=== PATIENT | male | born 1960 | race Caucasian/White ===

== ENCOUNTER 2017-04-02 14:37 | Inpatient (IN) | payer OTHER, BC ==
[~2017-04-02] VITALS: Ht 165.1 cm; Wt 79.4 kg
--- NOTE | 2017-04-02 14:37 | NUR ---
Patient BIBA BLS, transferred to bed 4. RN evaluating patient at bedside.
[2017-04-02 14:44] VITALS: BP 134/68
--- NOTE | 2017-04-02 14:53 | NUR ---
PATIENT BIBA FROM HOME DIVERTED FROM [facility] FOR FEVER AND 8/10 RIGHT LEG PAIN. 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 DENIES N/V/D; SKIN IS PINK/WARM/DRY; AAOX4 ; LUNGS CLEAR BL; HR EVEN AND REGULAR; PT DENIES ANY CP, SOB, OR COUGH AT THIS TIME; PATIENT STATES PAIN OF 10/10 AT THIS TIME;PATIENT POSITIONED FOR COMFORT; HOB ELEVATED; BEDRAILS UP X2; BED DOWN. ER MD MADE AWARE OF PT STATUS.
[2017-04-02] MEDS ORDERED: BUMEX1 MG PO (14:58)
[2017-04-02] MEDS ORDERED: ASPIRIN81 M1 PO (14:58)
[2017-04-02] MEDS ORDERED: ZYLOPRIM100 MG PO (14:58)
[2017-04-02] MEDS ORDERED: ASTAGRAF XL1 MG PO (14:58)
[2017-04-02] MEDS ORDERED: ZESTRIL5 MG PO (15:03)
[2017-04-02] MEDS ORDERED: [UNRECOGNIZED DRUG - OTHER] PO (15:03)
[2017-04-02] MEDS ORDERED: APRESOLINE25 MG PO (15:03)
[2017-04-02] MEDS ORDERED: TOPROL XL50 MG PO (15:03)
--- NOTE | 2017-04-02 15:10 | NUR ---
Dr. Soriano evaluating patient at bedside.
[2017-04-02] MEDS ORDERED: MORPHINE SULFATE 4 MG/ML SYR IVP ONE (15:20)
[2017-04-02] MEDS ORDERED: VANCOMYCIN 1,000 MG in DEXTROSE 5% 250 ML IV ONE (15:20)
[2017-04-02] MEDS ORDERED: VITAMIN D1000 IU PO (15:43)
[2017-04-02] MEDS ORDERED: PREDNISONE20 MG PO (15:43)
[2017-04-02] MEDS ORDERED: PRAVASTATIN SOD10 MG PO (15:43)
[2017-04-02] MEDS ORDERED: GOOD SENSE OMEP20 MG PO (15:43)
[2017-04-02] MEDS ORDERED: MULTI-VITAMINS1 TAB PO (15:43)
--- NOTE | 2017-04-02 15:46 | NUR ---
XRAY AT BEDSIDE.
[2017-04-02] MEDS ORDERED: HUMALOG100 UNIT/1 SQ (15:47)
[2017-04-02] MEDS ORDERED: LEVEMIR100 U/ML SUBQ (15:47)
[2017-04-02] MEDS ORDERED: VANCOMYCIN 1,000 MG VIAL ONE (16:08)
--- NOTE | 2017-04-02 16:24 | NUR ---
PT RESTING ON BED;NO ACUTE DISTRESS NOTED;WILL CONTINUE TO MONITOR PT.
--- NOTE | 2017-04-02 16:25 | NUR ---
US tech at bedside for exam.
--- NOTE | 2017-04-02 16:33 | NUR ---
US AT BEDSIDE.
[2017-04-02] MEDS ORDERED: NACL 0.9% 1,000 ML IV SCH (17:06)
[2017-04-02] MEDS ORDERED: DEXTROSE 50% 50 ML SYR IVP PRN (17:10)
[2017-04-02] MEDS ORDERED: ACETAMINOPHEN 325 MG TAB PO PRN (17:10)
[2017-04-02] MEDS ORDERED: DOCUSATE SODIUM 100 MG GELCAP PO PRN ×2 (17:10→18:00)
[2017-04-02] MEDS ORDERED: ONDANSETRON 4 MG/2 ML VIAL IM/IVP PRN (17:10)
[2017-04-02] MEDS ORDERED: hydrALAZINE 25 MG TAB PO SCH (17:10)
[2017-04-02] MEDS ORDERED: PIPERACILLIN/TAZOBACTAM 2.25 GM in DEXTROSE 5% 50 ML IV SCH (18:00)
[2017-04-02] MEDS ORDERED: ALBUTEROL SULFATE/IPRATROPIU 3 ML SOL IH PRN (18:00)
[2017-04-02 18:10] VITALS: BP 128/70
--- NOTE | 2017-04-02 18:10 | NUR ---
RECEIVED PT FROM ER, AWAKE, ALERT ORIENTEDX4. NO SOB NOTED. PT HAS FISTULA AT RIGHT ARM, JACQUIE CATH ON RIGHT UPPER CHEST NOTED, DRESSING DRY AND INTACT. PT HAS RIGHT LEG SWELLING WITH REDNESS DUE TO RIGHT LEG CELLULITIS. SKIN INTACT. PT VERBALIZED HE IS AMBULATORY BUT CAN'T AMBULATE RIGHT NOW BECAUSE OF PAIN OF RIGHT LEG. SAFETY PRECAUTION IN PLACE. CALL LIGHT WITHIN REACH.
--- NOTE | 2017-04-02 18:16 | NUR ---
Patient will be admitted to care of DR MCCLURE. Admited to TELE. Will go to room 110 B. Belongings list completed. Report to NINA CROFT.
--- NOTE | 2017-04-02 18:30 | NUR ---
CALLED RESIDENT DATA GOVERNANCE CONSULTANT NUMBER. LEFT A MESSAGE TO GET AN MRSA TEST ORDER PER HOSPITAL PROTOCOL. AWAITING CALL BACK.
[2017-04-02] MEDS: CLINDAMYCIN 900 MG in DEXTROSE 5% 100 ML IV SCH ×2 (18:49→23:40)
[2017-04-02] MEDS: HYDROcodone/APAP 7.5/325 MG 1 TAB PO PRN (18:49)
--- NOTE | 2017-04-02 19:30 | NUR ---
RECEIVED REPORT FROM DAY RN AT BEDSIDE, PATIENT IS AAOX4 RESTING IN BED, NO SOB OR SIGN OF DISTRESS ON ROOM AIR. SKIN INTACT WITH REDNESS AND SWELLING TO RIGHT LOWER EXTREMITY, WARM TO THE TOUCH. PATIENT STATES PAIN WHEN LEG IS TOUCHED. PAIN MEDS ADMINISTERED. IV TO LEFT WRIST PATENT AND INTACT, NOTED FISTULA TO RIGHT ARM, PATIENT STATES NOT IN USE YET, JACQUIE CATH TO RIGHT UPPER CHEST NOTED WITH DRESSING DRY AND INTACT. DISCUSSED PLAN OF CARE WITH PATIENT, PATIENT VERBALIZED UNDERSTANDING, SAFETY MEASURES CHECKED, CALL LIGHT WITHIN REACH. WILL CONTINUE TO MONITOR.
--- NOTE | 2017-04-02 19:31 | NUR ---
PT KEPT CLEAN DRY AND COMFORTABLE. NEEDS ATTENDED. ENDORSED TO NEXT SHIFT REASSESSMENT OF PRN PAIN MEDICATION. NO SOB NOTED AT THIS TIME.
[2017-04-02 19:40] VITALS: BP 128/73
--- NOTE | 2017-04-02 20:18 | NUR ---
PAGED THE SUSTAINMENT LOGISTICS ANALYST DR MARCIAL, INQUIRED ABOUT PATIENT'S NPO STATUS PATIENT EXPRESSED CONCERN ABOUT BEING DIABETIC AND NOT BEING ABLE TO EAT, STATED HE WOULD PUT IN ORDER FOR TONIGHT AND NPO AFTER MIDNIGHT. EXPLAINED TO PATIENT, VERBALIZED UNDERSTANDING, STATED OKAY TO GIVE MEDICATION WITH NPO.
[2017-04-02] MEDS: TACROLIMUS 0.5 MG CAP PO SCH (20:39)
[2017-04-02] MEDS: BUMETANIDE 1 MG TAB PO SCH (20:39)
[2017-04-02] MEDS: SIMVASTATIN 10 MG TAB PO SCH (20:40)
[2017-04-02] MEDS: MORPHINE SULFATE 2 MG/ML SYR IVP PRN (20:40)
[2017-04-02] MEDS: DOCUSATE SODIUM 100 MG GELCAP PO SCH (20:40)
[2017-04-02] MEDS: BLOOD GLUCOSE MONITORING 1 DEV DEV FS SCH (20:49)
--- NOTE | 2017-04-02 20:52 | NUR ---
PM MEDS ADMINISTERED, PATIENT TOLERATED WELL, CALL LIGHT WITHIN REACH. WILL CONTINUE TO MONITOR
[2017-04-03] VITALS: BP 113/54
--- NOTE | 2017-04-03 00:02 | NUR ---
VITAL SIGNS STABLE, NO SOB OR SIGN OF DISTRESS, CALL LIGHT WITHIN REACH. WILL CONTINUE TO MONITOR.
[2017-04-03] MEDS: MORPHINE SULFATE 2 MG/ML SYR IVP PRN ×6 (01:26→20:15)
--- NOTE | 2017-04-03 02:09 | NUR ---
PATIENT SLEEPING, NO SOB OR SIGN OF DISTRESS AT THIS TIME, CALL LIGHT WITHIN REACH. WILL CONTINUE TO MONITOR
[2017-04-03 04:00] VITALS: BP 156/69
--- NOTE | 2017-04-03 04:28 | NUR ---
VITAL SIGNS STABLE, NO SOB OR SIGN OF DISTRESS, CALL LIGHT WITHIN REACH. WILL CONTINUE TO MONITOR
[2017-04-03] MEDS: CLINDAMYCIN 900 MG in DEXTROSE 5% 100 ML IV SCH ×3 (05:10→17:09)
--- NOTE | 2017-04-03 06:15 | NUR ---
CALLED DIALYSIS NURSE TO INFORM ORDER FOR DIALYSIS TODAY.
[2017-04-03] MEDS: BLOOD GLUCOSE MONITORING 1 DEV DEV FS SCH ×4 (06:32→20:20)
--- NOTE | 2017-04-03 06:45 | NUR ---
PATIENT HAS BEEN SCREENED AND CATEGORIZED HIGH NUTRITION RISK. PATIENT WILL BE SEEN WITHIN 1-2 DAYS OF ADMISSION. 04/03/17-04/04/17 MEG SAUCEDO MS, RDN
[2017-04-03] MEDS ORDERED: INSULIN LISPRO 6 UNIT SQ SCH (07:30)
--- NOTE | 2017-04-03 07:30 | NUR ---
ENDORSED PATIENT TO DAY RN AT BEDSIDE, PATIENT IN STABLE CONDITION
--- NOTE | 2017-04-03 07:31 | NUR ---
PT AWAKE AND ALERT AND ORIENTED X4, NO SIGNS OF ACUTE DISTRESS, BREATHING EVEN AND UNLABORED BILATERALLY, BOWEL SOUNDS ACTIVE IN ALL 4 QUADRANTS, BEDREST, SKIN INTACT WITH RIGHT AV FISTULA IN UPPER ARM, JACQUIE CATH RIGHT UPPER CHEST AND IV IN LEFT WRIST PATENT WITH NO SIGNS OF REDNESS, BED IN LOW POSITION WITH BILATERAL HALF SIDE RAILS UP, CALL LIGHT WITHIN REACH.
[2017-04-03 08:00] VITALS: BP 137/72
--- NOTE | 2017-04-03 08:00 | NUR ---
CALLED DIALYSIS CENTER, SAID THAT THEY WILL BEGIN DIALYSIS AT 0900 TODAY. WILL HOLD ALL 0900 MEDICATIONS, PT BLOOD PRESSURE STABLE.
[2017-04-03] MEDS: BUMETANIDE 1 MG TAB PO SCH ×2 (09:00→20:14)
[2017-04-03] MEDS: DOCUSATE SODIUM 100 MG GELCAP PO SCH ×2 (09:00→20:14)
[2017-04-03] MEDS: VIT-B COMP/VIT-C/FOLIC ACID 1 TAB PO SCH (09:00)
[2017-04-03] MEDS: CHOLECALCIFEROL 1,000 IU TAB PO SCH (09:00)
[2017-04-03] MEDS: ASPIRIN 81 MG TAB.CHEW PO SCH (09:00)
[2017-04-03] MEDS ORDERED: hydrALAZINE 25 MG TAB PO SCH (09:00)
[2017-04-03] MEDS ORDERED: PRAVASTATIN SODIUM 10 MG PO SCH (09:00)
[2017-04-03] MEDS: INSULIN DETEMIR 100 UNITS/ML 10 ML VIAL SUBQ SCH (09:00)
[2017-04-03] MEDS: METOPROLOL SUCCINATE 50 MG TABER PO SCH (09:00)
[2017-04-03] MEDS ORDERED: MULTIVITAMIN 1 TAB PO SCH (09:00)
[2017-04-03] MEDS: predniSONE 5 MG TAB PO SCH (09:00)
[2017-04-03] MEDS: ALLOPURINOL 100 MG TAB PO SCH (09:00)
[2017-04-03] MEDS: TACROLIMUS 0.5 MG CAP PO SCH ×2 (09:00→20:14)
[2017-04-03] MEDS: LISINOPRIL 5 MG TAB PO SCH (09:00)
[2017-04-03] MEDS ORDERED: LEVOFLOXACIN 250 MG/D5 PREMIX 50 ML IV SCH (09:00)
--- NOTE | 2017-04-03 10:03 | NUR ---
04/03/17 INITIAL ASSESSMENT COMPLETED PLEASE REFER TO NUTRITION ASSESSMENT UNDER CARE ACTIVITY FOR ESTIMATED NUTRITIONAL NEEDS. RD RECOMMENDATIONS: 1. CONTINUE NPO MEDICALLY APPROPRIATE. 2. CONSIDER INITIATING NUTRITION WHEN APPROPRIATE; CONSULT RDN PRN. 3. RD WILL F/U 3-5 DAYS; MODERATE RISK. MEG SAUCEDO MS, RDN
[2017-04-03 12:00] VITALS: BP 140/67
--- NOTE | 2017-04-03 13:00 | NUR ---
DIALYSIS NURSE ARRIVED, REPORT GIVEN. PT WILL BEGIN HEMODIALYSIS. BLOOD SUGAR WAS 76 AT 1200.
[2017-04-03 16:00] VITALS: BP 144/71
--- NOTE | 2017-04-03 17:13 | NUR ---
DIALYSIS FINISHED, OUTPUT 3,000ML. PT AWAKE AND ALERT, NO SIGNS OF ACUTE DISTRESS.
--- NOTE | 2017-04-03 18:38 | NUR ---
PT C/O FEELING FEVERISH. TEMPERATURE 99.7, PROVIDED ICE PACK FOR COOLING MEASURES. WILL RE-ASSESS.
--- NOTE | 2017-04-03 19:30 | NUR ---
PT AWAKE AND ALERT, NO SIGNS OF ACUTE DISTRESS. BED IN LOW POSITION WITH BILATERAL HALF SIDE RAILS UP, CALL LIGHT WITHIN REACH. ENDORSED TO HEAVY TRUCK TECHNICIAN NURSE FOR CONTINUITY OF CARE.
--- NOTE | 2017-04-03 19:30 | NUR ---
RECEIVED REPORT FROM DAY RN AT BEDSIDE, PATIENT IS AWAKE AAOX4 RESTING IN BED ON ROOM AIR, NO SOB OR SIGN OF DISTRESS AT THIS TIME, IV TO LEFT WRIST PATENT AND INTACT, PATIENT DENIES PAIN AT THIS TIME. RIGHT LOWER EXTREMITY CELLULITIS WRAPPED IN BANDAGE, DRY AND INTACT. DISCUSSED PLAN OF CARE WITH PATIENT, PATIENT VERBALIZED UNDERSTANDING, SAFETY MEASURES CHECKED, CALL LIGHT WITHIN REACH. WILL CONTINUE TO MONITOR.
[2017-04-03 19:43] VITALS: BP 140/63
[2017-04-03] MEDS: SIMVASTATIN 10 MG TAB PO SCH (20:14)
--- NOTE | 2017-04-03 20:19 | NUR ---
PM MEDS ADMINISTERED, PATIENT TOLERATED WELL, RESTING COMFORTABLE IN BED, CALL LIGHT WITHIN REACH. WILL CONTINUE TO MONITOR
--- NOTE | 2017-04-03 22:40 | NUR ---
PATIENT SLEEPING, NO SOB OR SIGN OF DISTRESS AT THIS TIME, CALL LIGHT WITHIN REACH. WILL CONTINUE TO MONITOR.
[2017-04-04] VITALS: BP 144/65
[2017-04-04] MEDS: MORPHINE SULFATE 2 MG/ML SYR IVP PRN ×3 (00:05→08:36)
[2017-04-04] MEDS: CLINDAMYCIN 900 MG in DEXTROSE 5% 100 ML IV SCH ×5 (00:09→23:26)
--- NOTE | 2017-04-04 00:10 | NUR ---
PT REQUESTED TO REMOVE THE PILLOW FROM HIS RT LEG, EXPLAINED TO HIM THAT THE MD WANTS HIS RT LEG ELEVATED WHILE HE IS. IN BED
--- NOTE | 2017-04-04 02:30 | NUR ---
PATIENT SLEEPING, NO SOB OR SIGN OF DISTRESS, CALL LIGHT WITHIN REACH. WILL CONTINUE TO MONITOR.
[2017-04-04 04:00] VITALS: BP 134/53
--- NOTE | 2017-04-04 04:20 | NUR ---
VITAL SIGNS STABLE, NO SOB OR SIGN OF DISTRESS, CALL LIGHT WITHIN REACH WILL CONTINUE TO MONITOR
[2017-04-04] MEDS: BLOOD GLUCOSE MONITORING 1 DEV DEV FS SCH ×4 (06:41→20:41)
--- NOTE | 2017-04-04 07:32 | NUR ---
ENDORSED PATIENT TO DAY RN AT BEDSIDE, PATIENT IN STABLE CONDITION.
--- NOTE | 2017-04-04 07:36 | NUR ---
RECEIVED REPORT FROM NINA HICKEY. PT IS SITTING IN BED, A/OX4, BEDREST, PT HAS IV ON THE LT WRIST, PATENT, INTACT, FLUSHING WELL, PT HAS A JACQUIE CATH, RIGHT UPPER CHEST, AV FISTULA RIGHT UPPER ARM (NOT IN USE) SKIN IS INTACT, THERE IS RED SWELLING ON THE RIGHT LEG NOTED, THERE ARE NO S/S OF RESPIRATORY DISTRESS OR DISCOMFORT NOTED, DISCUSSED PLAN OF CARE WITH PT, PT VERBALIZED UNDERSTANDING, SAFETY/FALL PRECAUTIONS ARE IN PLACE, CALL LIGHT IS WITHIN REACH, WILL CONTINUE TO MONITOR.
[2017-04-04 08:00] VITALS: BP 137/60
[2017-04-04] MEDS: METOPROLOL SUCCINATE 50 MG TABER PO SCH (08:36)
[2017-04-04] MEDS: BUMETANIDE 1 MG TAB PO SCH ×2 (08:37→20:36)
[2017-04-04] MEDS: TACROLIMUS 0.5 MG CAP PO SCH ×2 (08:37→20:37)
[2017-04-04] MEDS: predniSONE 5 MG TAB PO SCH (08:37)
[2017-04-04] MEDS: CHOLECALCIFEROL 1,000 IU TAB PO SCH (08:37)
[2017-04-04] MEDS: VIT-B COMP/VIT-C/FOLIC ACID 1 TAB PO SCH (08:37)
--- NOTE | 2017-04-04 08:37 | NUR ---
DUE MEDICATIONS GIVEN, PT ASKED ME TO HOLD OFF ON THE ASPIRIN BECAUSE HE WAS GOING TO HAVE A PROCEDURE DONE THIS WEEK. ASPIRIN WAS NOT GIVEN.
[2017-04-04] MEDS: LISINOPRIL 5 MG TAB PO SCH (08:38)
[2017-04-04] MEDS: DOCUSATE SODIUM 100 MG GELCAP PO SCH ×2 (08:38→20:36)
[2017-04-04] MEDS: ALLOPURINOL 100 MG TAB PO SCH (08:38)
[2017-04-04] MEDS: ASPIRIN 81 MG TAB.CHEW PO SCH (08:45)
[2017-04-04] MEDS ORDERED: HYDROmorphone 1 MG/ML AMP IVP PRN (08:55)
[2017-04-04] MEDS: INSULIN DETEMIR 100 UNITS/ML 10 ML VIAL SUBQ SCH (09:00)
--- NOTE | 2017-04-04 10:30 | NUR ---
PT RESTING IN BED WATCHING TV, CALL LIGHT WITHIN REACH.
[2017-04-04 12:00] VITALS: BP 135/62
--- NOTE | 2017-04-04 12:30 | NUR ---
PT SITTING IN BED, WATCHING TV, CALL LIGHT WITHIN REACH.
[2017-04-04] MEDS: HYDROmorphone 1 MG/ML AMP IVP PRN ×3 (12:46→20:33)
--- NOTE | 2017-04-04 14:30 | NUR ---
PT RESTING IN BED WATCHING TV, FAMILY IS AT BEDSIDE.
[2017-04-04 16:00] VITALS: BP 125/60
--- NOTE | 2017-04-04 16:30 | NUR ---
PT SITTING IN BED WATCHING TV, FAMILY IS AT BEDSIDE, CALL LIGHT WITHIN REACH.
[2017-04-04] MEDS: INSULIN LISPRO SLIDING SCALE 100 UNITS/ML VIAL SUBQ PRN ×2 (16:58→20:40)
--- NOTE | 2017-04-04 18:00 | NUR ---
PT CALLED SAID IV WAS LEAKING, IV WAS FLUSHED PATENT, AND INTACT, NEW TEGADERM PLACED AND RE ENFORCED WITH TAPE.
--- NOTE | 2017-04-04 19:18 | NUR ---
ENDORSED PT TO NINA TYLER. FOR CONTINUITY OF CARE, PT STABLE AT THIS TIME.
--- NOTE | 2017-04-04 19:20 | NUR ---
RECEIVED PT AWAKE ON BED TALKING TO FAMILY MEMBER AT BEDSIDE, VITAL SIGNS STABLE, 6/10 PAIN LEVEL, WILL MEDICATE PRN WHEN DUE, NO SOB NOTED, RT LEG SWOLLEN, COVERED WITH ROLLED GAUZE, LEG ELEVATED WITH PILLOW, RT CHEST JACQUIE CATH IN PLACE, DRESSING DRY AND INTACT, PLAN OF CARE DISCUSSED, SAFETY MEASURES IN PLACE, CALL LIGHT WITHIN REACH.
[2017-04-04 20:00] VITALS: BP 113/59
[2017-04-04] MEDS: MAGNESIUM OXIDE 400 MG TAB PO SCH (20:36)
[2017-04-04] MEDS: SIMVASTATIN 10 MG TAB PO SCH (20:36)
--- NOTE | 2017-04-04 20:40 | NUR ---
BLOOD SUGAR CHECKED WITH 183 RESULT, COVERAGE GIVEN, SNACK PROVIDED, DUE MEDICATIONS ADMINISTERED, MEDICATED PRN FOR PAIN, ASSIST IN REPOSITIONING, ALL NEEDS ATTENDED.
--- NOTE | 2017-04-04 22:10 | NUR ---
ROUNDED ON PT, AWAKE WATCHING TV, NO SIGNS OF DISTRESS, MONITORED CLOSELY.
[2017-04-05] VITALS: BP 105/50
[2017-04-05] MEDS: HYDROcodone/APAP 7.5/325 MG 1 TAB PO PRN ×2 (00:34→06:25)
--- NOTE | 2017-04-05 00:37 | NUR ---
PT COMPLAINING OF PAIN, PT PREFER DILAUDID BUT BLOOD PRESSURE IS LOW, RISK EXPLAINED, PT VERBALIZED UNDERSTANDING, MEDICATED INSTEAD WITH NORCO PO, MONITORED CLOSELY.
[2017-04-05] MEDS: HYDROmorphone 1 MG/ML AMP IVP PRN ×2 (02:21→08:17)
--- NOTE | 2017-04-05 02:35 | NUR ---
PT COMPLAINING OF SEVERE PAIN, BP-130/55, MEDICATED PRN WITH DILAUDID IVP, VOIDED FREELY PER URINAL WITH MOIRA COLORED URINE 100ML, MONITORED CLOSELY.
[2017-04-05 04:00] VITALS: BP 105/52
--- NOTE | 2017-04-05 04:00 | NUR ---
SLEEPING, EASILY AROUSABLE, VITAL SIGNS STABLE, BP-105/52, DENIES ANY PAIN, MONITORED CLOSELY.
[2017-04-05] MEDS: CLINDAMYCIN 900 MG in DEXTROSE 5% 100 ML IV SCH ×3 (05:09→18:12)
--- NOTE | 2017-04-05 06:31 | NUR ---
BLOOD SUGAR CHECKED WITH 145 RESULT, NO COVERAGE NEEDED, COMPLAINING OF PAIN, BP-102/49, MEDICATED PRN WITH NORCO, UNABLE TO COLLECT STOOL FOR OB, NO BM THE WHOLE SHIFT, WILL ENDORSE.
--- NOTE | 2017-04-05 07:15 | NUR ---
PT AWAKE, DR MCCLURE AT BEDSIDE TALKING TO PT, REPORT GIVEN TO RN ANGELICA FOR CONTINUITY OF CARE.
--- NOTE | 2017-04-05 07:35 | NUR ---
REPORT RECEIVED FROM PEDIATRIC UROLOGIST, PT RESTING QUIETLY IN NAD, RESP EVEN UNLABORED ON ROOM AIR, MOVES ALL EXT, RIGHT LOWER EXT WITH +3 EDEMA, GOOD CMS DISTALLY, SKIN INTACT, PIV TO LEFT HAND, SITE CLEAR, MD TEAM AT BEDSIDE, PLAN OF CARE DISCUSSED, ALL PT QUESTIONS ASKED AND ANSWERED, PT DENIES ANY IMMEDIATE NEEDS AT HTIS TIME, CALL GARCIA WITHIN REACH, BED LOCKED IN LOW POSITION, SIDE RAILS UP X2, WILL CONTINUE TO MONITOR.
[2017-04-05] MEDS: BLOOD GLUCOSE MONITORING 1 DEV DEV FS SCH ×4 (07:40→21:48)
[2017-04-05 08:00] VITALS: BP 111/53
[2017-04-05] MEDS: TACROLIMUS 0.5 MG CAP PO SCH ×2 (08:12→08:16)
[2017-04-05] MEDS: predniSONE 5 MG TAB PO SCH (08:15)
[2017-04-05] MEDS: MAGNESIUM OXIDE 400 MG TAB PO SCH ×2 (08:16→21:42)
[2017-04-05] MEDS: BUMETANIDE 1 MG TAB PO SCH ×2 (08:16→21:42)
[2017-04-05] MEDS: CHOLECALCIFEROL 1,000 IU TAB PO SCH (08:16)
[2017-04-05] MEDS: VIT-B COMP/VIT-C/FOLIC ACID 1 TAB PO SCH (08:16)
[2017-04-05] MEDS: ALLOPURINOL 100 MG TAB PO SCH (08:16)
[2017-04-05] MEDS: INSULIN DETEMIR 100 UNITS/ML 10 ML VIAL SUBQ SCH (08:18)
[2017-04-05] MEDS: ASPIRIN 81 MG TAB.CHEW PO SCH (09:00)
[2017-04-05] MEDS: LISINOPRIL 5 MG TAB PO SCH (09:00)
[2017-04-05] MEDS: METOPROLOL SUCCINATE 50 MG TABER PO SCH (09:00)
[2017-04-05] MEDS: DOCUSATE SODIUM 100 MG GELCAP PO SCH ×2 (09:00→21:42)
--- NOTE | 2017-04-05 10:00 | NUR ---
PT RESTING COMFORTABLY WITH FAMILY AT BEDSIDE, RESP EVEN UNLABORED ON ROOM AIR, APPEARS COMFORTABLE IN NAD, CHANGED TO MED/SURGE, TELE MONITOR REMOVED, PT DENIES ANY IMMEDIATE NEEDS, CALL GARCIA WITHIN REACH, BED LOCKED IN LOW POSITION, WILL CONTINUE TO MONITOR.
--- NOTE | 2017-04-05 11:03 | NUR ---
[facility] CALLED, HAAS JESSE NOTIFIED OF HEMODIALYSIS ORDER, PT TO BE DIALYZED TOMORROW PER HAAS, PER PT'S REGULAR SCHEDULE WED/WED/WED.
--- NOTE | 2017-04-05 11:21 | NUR ---
FAXED INITIAL REVIEW TO [facility] [phone] PHONE MELIDA [phone]
--- NOTE | 2017-04-05 11:54 | NUR ---
FINGER STICK GLUCOSE 117, PT SITTING UP TALKING WITH FAMILY SMILING IN NAD, PT C/O PAIN 8/10 IN RLE, REFUSES NORCO, PT STATES NORCO WILL NOT WORK, DR NAVARRETE NOTIFIED, CALL GARCIA WITHIN REACH, SIDE RAILS UP X2, BED LOCKED IN LOW POSITION, WILL CONTINUE TO MONITOR.
[2017-04-05] MEDS ORDERED: HYDROmorphone 2 MG TAB PO SCH (12:50)
[2017-04-05 16:00] VITALS: BP 113/44
[2017-04-05] MEDS ORDERED: HYDROmorphone 1 MG/ML AMP IVP PRN (16:25)
[2017-04-05] MEDS: LEVOFLOXACIN 250 MG/D5 PREMIX 50 ML IV SCH (16:26)
[2017-04-05] MEDS: HYDROcodone/APAP 10/325 MG 1 TAB TAB PO PRN ×2 (16:52→21:03)
--- NOTE | 2017-04-05 19:26 | NUR ---
REPORT GIVEN TO ADVERTISING ANALYST, PT IN STABLE CONDITION
--- NOTE | 2017-04-05 19:30 | NUR ---
RECEIVED PT IN STABLE CONDITION FROM AM NURSE. AWAKE,ALERT AND ORIENTED X4. MED SURG PT. WITH NO C/O ANY DISCOMFORT AT THIS TIME. HAS ANTIBIOTICS INFUSING AT THIS TIME ON THE LT HAND#22. CLEAR AND PATENT. RT LOWER LEG WITH CELLULITIS, WITH DRESSING . PLAN OF CARE DISCUSSED AND VERBALIZED UNDERSTANDING. CALL LIGHT AND URINAL AT BEDSIDE. INSTRUCTED TO CALL IF NEED ANY ASSISTANCE. WILL CONTINUE TO MONITOR.
[2017-04-05] MEDS: SIMVASTATIN 10 MG TAB PO SCH (21:42)
[2017-04-05] MEDS: INSULIN LISPRO SLIDING SCALE 100 UNITS/ML VIAL SUBQ PRN (21:49)
--- NOTE | 2017-04-05 22:10 | NUR ---
SLEEPING AT THIS TIME. NO S/S OF ANY DISCOMFORT AND PAIN NOTED.
[2017-04-06] MEDS: CLINDAMYCIN 900 MG in DEXTROSE 5% 100 ML IV SCH ×4 (00:10→17:09)
[2017-04-06 00:30] VITALS: BP 133/64
--- NOTE | 2017-04-06 03:00 | NUR ---
AWAKE, NO C/O OF ANY DISCOMFORT AT THIS TIME. VOIDED @120 ML.
[2017-04-06] MEDS: HYDROcodone/APAP 10/325 MG 1 TAB TAB PO PRN ×4 (05:13→20:48)
--- NOTE | 2017-04-06 05:13 | NUR ---
SLEEPING . NO S/S OF ANY DISCOMFORT NOR PAIN NOTED.
[2017-04-06] MEDS: BLOOD GLUCOSE MONITORING 1 DEV DEV FS SCH ×4 (06:12→21:00)
--- NOTE | 2017-04-06 07:15 | NUR ---
ENDORSED PT IN STABLE CONDITION TO AM NURSE.
--- NOTE | 2017-04-06 07:16 | NUR ---
RECEIVED PT AWAKE AND LYING ON BED, AAOX4, WITH NO S/S OF RESPIRATORY DISTRESS OR DISCOMFORT, ON ROOM AIR, WITH IV ACCESS AT LEFT HAND 22 ON SALINE LOCK PATENT AND INTACT. PT HAS JACQUIE CATH ON RIGHT UPPER CHEST WITH TRANSPARENT DRESSING, NEW AV SHUNT NOTED ON RIGHT UPPER ARM POSITIVE FOR BRUIT AND THRILL. OLD AV SHUNT NOTED ON LEFT UPPER ARM. PT HAS RIGHT LOWER LEG CELLULITIS COVERED WITH BANDAGE DRESSING DRY AND INTACT WITH EDEMA NOTED 3+, PT COMPLAINED OF PAIN, WILL MEDICATE NORCO WHEN IT IS DUE. DISCUSSED PLAN OF CARE, PT VERBALIZED UNDERSTANDING. CALL LIGHT WITHIN REACH, WILL CONTINUE TO MONITOR
--- NOTE | 2017-04-06 07:30 | NUR ---
PT HAS NEW AV SHUNT ON THE RT UPPER ARM WITH GOOD BRUIT. OLD SHUNT ON LT UPPER ARM. DALTON SPLIT HD CATHETER ON RT CHEST DRESSING CLEAN AND DRY.
[2017-04-06 08:00] VITALS: BP 105/45
--- NOTE | 2017-04-06 08:02 | NUR ---
DIALYSIS NURSE ROM ROWLAND
[2017-04-06] MEDS ORDERED: CLEOCIN HCL300 MG PO (08:45)
[2017-04-06] MEDS ORDERED: COLACE100 M1 PO (08:45)
[2017-04-06] MEDS ORDERED: BLOOD GLUCOSE1 EACH FS (08:45)
[2017-04-06] MEDS ORDERED: ACETAMINOPHEN &1 TA1 PO (08:45)
[2017-04-06] MEDS ORDERED: FLORASTOR250 MG PO (08:45)
[2017-04-06] MEDS ORDERED: NEPHRO-VITE1 TA1 PO (08:45)
[2017-04-06] MEDS: CHOLECALCIFEROL 1,000 IU TAB PO SCH (08:48)
[2017-04-06] MEDS: ALLOPURINOL 100 MG TAB PO SCH (08:49)
[2017-04-06] MEDS: predniSONE 5 MG TAB PO SCH (08:49)
[2017-04-06] MEDS: MAGNESIUM OXIDE 400 MG TAB PO SCH ×2 (08:49→20:49)
[2017-04-06] MEDS: VIT-B COMP/VIT-C/FOLIC ACID 1 TAB PO SCH (08:49)
[2017-04-06] MEDS: EPOETIN ALFA 10,000 UNITS/ML VIAL IV SCH (08:51)
[2017-04-06] MEDS: METOPROLOL SUCCINATE 50 MG TABER PO SCH (09:00)
[2017-04-06] MEDS: ASPIRIN 81 MG TAB.CHEW PO SCH (09:00)
[2017-04-06] MEDS: LISINOPRIL 5 MG TAB PO SCH (09:00)
[2017-04-06] MEDS: DOCUSATE SODIUM 100 MG GELCAP PO SCH ×2 (09:00→20:49)
[2017-04-06] MEDS: BUMETANIDE 1 MG TAB PO SCH ×2 (09:00→20:49)
[2017-04-06] MEDS: TACROLIMUS 0.5 MG CAP PO SCH ×2 (09:01→20:50)
[2017-04-06] MEDS: INSULIN DETEMIR 100 UNITS/ML 10 ML VIAL SUBQ SCH (09:01)
--- NOTE | 2017-04-06 09:02 | NUR ---
DUE MEDS OK TO GIVE PER SAMANTHA NURSE ROM CUELLAR. WITHHELD BP MEDS, BUMETANIDE DUE TO DIALYSIS, ASPIRIN DUE TO CONTRAINDICATION (PT HAD LIVER TRANSPLANT) AND COLACE PT STATED HE DOES NOT NEED IT.
[2017-04-06 09:40] VITALS: BP 142/60
--- NOTE | 2017-04-06 10:40 | NUR ---
PT ASLEEP AND RESTING COMFORTABLY, HEMODIALYSIS STILL ONGOING, WITH DIALYSIS NURSE ROM AT BEDSIDE.
--- NOTE | 2017-04-06 11:15 | NUR ---
DIALYSIS ENDED, PT IN STABLE CONDITION WITH 3L OUTPUT
--- NOTE | 2017-04-06 11:36 | NUR ---
P.T. NOTES RECEIVED P.T. EVAL ORDER; Pt UNAVAILABLE DUE TO DIALYSIS IN AM, WILL FOLLOW UP LATER; CALL JOSE, PHONE, TABLE IN REACH; APPRECIATIVE; SPEAKS INDONESIAN, STATES HE LIVES AT HOME W/ & 2 CHILDREN, ALWAYS HAS FAMILY AT HOME, HAS FWW, W/C, BSC, SHOWER CHAIR, SPC. PVE
[2017-04-06] MEDS: INSULIN LISPRO SLIDING SCALE 100 UNITS/ML VIAL SUBQ PRN ×2 (12:04→17:14)
[2017-04-06] MEDS ORDERED: MORPHINE SULFATE 2 MG/ML SYR IVP SCH (12:08)
--- NOTE | 2017-04-06 12:08 | NUR ---
FAXED CONCURRENT REVIEW TO [facility] [phone] PHONE MELIDA [phone]
--- NOTE | 2017-04-06 12:18 | NUR ---
PUT 2 CALLS IN TO MELIDA ABOUT THIS PATIENT. LEFT MESSAGE FOR HER TO CALL EDELMIRA AT [phone] ALSO CALLED PAPITO AT [facility] AND LEFT MESSAGE.
--- NOTE | 2017-04-06 12:18 | NUR ---
PATIENT EXPRESSED CONCERNS REGARDING HIS PAIN AND GOING HOME, STATED THAT HIS DAUGHTER MIGHT NOT BE ABLE TO MANAGE HIM AT HOME DUE TO HIS CONDITION AND THE PAIN, RELAYED TO DR. CERVANTES
--- NOTE | 2017-04-06 13:32 | NUR ---
SS NOTE: MESSAGE LEFT FOR CHELSEA MONTEZ ([phone]) REGARDING SS ORDER FOR SNF FOR IV ABX AND PT WELL TRANSPORT FOR DIALYSIS WHILE PT IS AT SNF
--- NOTE | 2017-04-06 14:11 | NUR ---
PT AWAKE AND WATCHING TV, STATED THAT HIS LEG DOES NOT HURT LONG HE WONT MOVE. NO SIGNS OF ACUTE DISTRESS, WILL CONTINUE TO MONITOR
--- NOTE | 2017-04-06 14:17 | NUR ---
SS NOTE: PER ROHAN FROM [facility] ([phone]), PT CAN GO TO ROOM 105A ANYTIME UNDER DR. ESSENCE MARTINEZ SOON THEY RECEIVE AUTH FROM PT'S INSURANCE. I SPOKE WITH PT AND PT'S DTR BEDSIDE. I INFORMED THEM OF THE ABOVE INFORMATION, PT IS IN AGREEMENT TO GO TO [facility].
--- NOTE | 2017-04-06 14:22 | NUR ---
CM NOTE MESSAGE LEFT FOR [facility] ROSA MONTEZ ([phone]) REGARDING ORDER FOR SNF AND TRANSPORT
--- NOTE | 2017-04-06 14:46 | NUR ---
SS NOTE: [facility] ROM[facility] ([phone]) REGARDING ORDER FOR SNF FOR IV ABX AND PT IN ADDITION TO DIALYSIS TRANSPORT WHILE PT IS AT [facility]
--- NOTE | 2017-04-06 15:28 | NUR ---
SS NOTE: I SPOKE WITH [facility] DIRECTOR, ROMELIA ([phone]) REGARDING ORDER FOR SNF FOR IV ABX AND PT IN ADDITION TO DIALYSIS TRANSPORT WHILE PT IS AT [facility]. SHE STATED THAT SHE WILL CONTACT THEIR CMMELIDA AND HAVE HER CALL ME BACK REGARDING AUTHORIZATIONS. I ALSO PROVIDED HER WITH THE NUMBER FOR THE NURSES' STATION.
--- NOTE | 2017-04-06 15:45 | NUR ---
PT COMPLAINED THAT HIS RIGHT EAR FEELS PLUGGED. NOTIFIED DR NAVARRETE, PER MD TO MONITOR FOR NOW. QTIP GIVEN TO PT TO HELP CLEAN HIS EAR. NO FURTHER COMPLAINS. ALSO STATED THAT HE FEELS LIKE HIS RIGHT LEG HAS PRESSURE AND THAT HIS MUSCLES ARE CRAMPING, ASSESSED LEG FOR DISTAL PULSES AND MOVEMENT. PT ABLE TO WIGGLE TOES AND ROTATE FEET WITHOUT COMPLAIN. NOTIFIED DR NAVARRETE, WILL PRESCRIBE FLEXERIL FOR MUSCLE SPASM
[2017-04-06 16:00] VITALS: BP 134/56
--- NOTE | 2017-04-06 16:02 | NUR ---
NOTIFIED DR NAVARRETE REGARDING PT COMPLAIN OF PAIN DESPITE NORCO. WILL AWAIT FOR ORDERS
--- NOTE | 2017-04-06 18:38 | NUR ---
PT AWAKE WATCHING TV, NO COMPLAINTS AT THIS TIME. WITH RELATIVE AT BEDSIDE. CALL LIGHT WITHIN REACH, WILL CONTINUE TO MONITOR.
--- NOTE | 2017-04-06 19:12 | NUR ---
ENDORSED PT TO LINDA RN IN STABLE CONDITION FOR CONTINUITY OF CARE
--- NOTE | 2017-04-06 19:30 | NUR ---
RECEIVED PT FROM AM NURSE IN STABLE CONDITION . AWAKE,ALERT AND ORIENTED X4. MED SURG PT. ON BEDREST DUE TO FREQUENT PAIN ON THE CELLULITIS ON THE RT LOWER LEG, HAS DRESSING. WITH HL ON THE LT HAND #22. CLEAR AND PATENT. HAS HD CATH ON THE RT CHEST DALTON SPLIT, OLD AV SHUNT ON LT UPPER ARM AND NEW AV SHUNT ON RT UPPER ARM WITH GOOD BRUIT. PLAN OF CARE DISCUSSED AND VERBALIZED UNDERSTANDING. CALL LIGHT PLACED WITHIN EASY REACH. WILL CONTINUE WITH CURRENT PLAN OF CARE. WILL CONTINUE TO MONITOR.
[2017-04-06] MEDS: SIMVASTATIN 10 MG TAB PO SCH (20:50)
--- NOTE | 2017-04-06 21:00 | NUR ---
BLOOD SUGAR WAS CHECKED RESULT 130. NO INSULIN NEEDED. WILL CONTINUE TO MONITOR.
--- NOTE | 2017-04-06 22:00 | NUR ---
ASLEEP. NO S/S OF ANY DISCOMFORT NOTED.
[2017-04-07 00:08] VITALS: BP 136/68
[2017-04-07] MEDS: CLINDAMYCIN 900 MG in DEXTROSE 5% 100 ML IV SCH ×4 (00:11→20:32)
[2017-04-07] MEDS: HYDROcodone/APAP 10/325 MG 1 TAB TAB PO PRN ×5 (00:11→20:28)
[2017-04-07 00:17] VITALS: BP 124/66
--- NOTE | 2017-04-07 01:10 | NUR ---
PT IS ASLEEP. NO S/S OF ANY DISCOMFORT NOR PAIN NOTED. WILL CONTINUE TO MONITOR.
[2017-04-07] MEDS: CYCLOBENZAPRINE 10 MG TAB PO PRN ×2 (01:37→18:25)
[2017-04-07] MEDS: BLOOD GLUCOSE MONITORING 1 DEV DEV FS SCH ×4 (06:00→20:34)
--- NOTE | 2017-04-07 06:00 | NUR ---
BLOOD SUGAR WAS CHECKED THIS AM RESULT 88.
[2017-04-07] MEDS ORDERED: HYDROcodone/APAP 10/325 MG 1 TAB TAB ONE (06:08)
--- NOTE | 2017-04-07 07:30 | NUR ---
ENDORSED PT IN STABLE CONDITION TO AM NURSE.
--- NOTE | 2017-04-07 07:31 | NUR ---
PT AWAKE AND ALERT, NO SIGNS OF ACUTE DISTRESS, BREATHING EVEN AND UNLABORED BILATERALLY ON ROOM AIR, BOWEL SOUNDS ACTIVE IN ALL 4 QUADRANTS, AMBULATORY WITH ASSIST USES URINAL, SKIN INTACT WITH CELLULITIS ON RIGHT LOWER EXTREMITY WITH PITTING EDEMA +2, IV PATENT WITHOUT REDNESS, JACQUIE CATH RIGHT UPPER CHEST, RT UPPER ARM AV SHUNT, COMPLAINT OF PAIN IN RIGHT LEG 06/24, CALL LIGHT WITHIN REACH, BED IN LOW POSITION WITH BILATERAL HALF SIDE RAILS UP.
[2017-04-07 08:00] VITALS: BP 149/67
[2017-04-07] MEDS ORDERED: ZOLPIDEM 5 MG TAB PO PRN (08:20)
--- NOTE | 2017-04-07 08:45 | NUR ---
BLOOD SUGAR 117, PER DR SEARS, AMERICA BURCIAGA, WILL CARRY OUT.
[2017-04-07] MEDS: VIT-B COMP/VIT-C/FOLIC ACID 1 TAB PO SCH (08:57)
[2017-04-07] MEDS: LISINOPRIL 5 MG TAB PO SCH (08:58)
[2017-04-07] MEDS: TACROLIMUS 0.5 MG CAP PO SCH ×2 (08:58→20:28)
[2017-04-07] MEDS: DOCUSATE SODIUM 100 MG GELCAP PO SCH ×2 (08:58→20:28)
[2017-04-07] MEDS: BUMETANIDE 1 MG TAB PO SCH ×2 (08:58→20:27)
[2017-04-07] MEDS: CHOLECALCIFEROL 1,000 IU TAB PO SCH (08:58)
[2017-04-07] MEDS: predniSONE 5 MG TAB PO SCH (08:58)
[2017-04-07] MEDS: METOPROLOL SUCCINATE 50 MG TABER PO SCH (08:58)
[2017-04-07] MEDS: ASPIRIN 81 MG TAB.CHEW PO SCH (08:59)
[2017-04-07] MEDS: MAGNESIUM OXIDE 400 MG TAB PO SCH ×2 (08:59→20:28)
[2017-04-07] MEDS: ALLOPURINOL 100 MG TAB PO SCH (08:59)
[2017-04-07] MEDS: INSULIN DETEMIR 100 UNITS/ML 10 ML VIAL SUBQ SCH (09:00)
--- NOTE | 2017-04-07 09:40 | NUR ---
CM NOTE LEFT SEVERAL MESSAGES FOR [facility] ROSA MONTEZ ([phone]) REGARDING SS ORDER FOR SNF FOR IV ABX AND PT WELL TRANSPORT FOR DIALYSIS WHILE PT IS AT SNF
--- NOTE | 2017-04-07 10:52 | NUR ---
ROSA HERNANDEZ RECEIVED A CALL FROM ROSA MONTEZ OF [facility] PH# [phone] AND SHE SAID ACCEPTING [facility] FACILITY AUTH# [id number], GOING TO [facility] AUTH# [id number], [facility] GOING TO DIALYSIS AND BACK TO [facility] AUTH# [id number]. SPOKE WITH CATERINA OF [facility] # [phone] TO SET UP PATIENT TRANSPORT GOING TO [facility] [address] FORK ASSEMBLER TIME 1500 TODAY, NUMBER TO CALL FOR REPORT PH# [phone], CHARGE NURSE JOSSY SALAZAR. [facility] [phone] TO CONFIRM THE PATIENT'S TRANSPORT GOING TO DIALYSIS CENTER FROM [facility] AND BACK TO [facility] THAT WAS SET UP BY ROSA MONTEZ OF [facility]. PER CATERINA, THEY CANNOT ACCOMODATE THIS PATIENT FOR THE DIALYSIS TRANSPORT. LEFT A MESSAGE TO ROSA MONTEZ TO LET HER KNOW. Addendum: 04/07/17 at 1106 by Shavonne Stearns CM ROSA MONTEZ'S PH# [phone] Addendum: 04/07/17 at 1402 by Shavonne Stearns CM FORK ASSEMBLER TIME BY [facility] GOING TO [place] CHANGED TO 1800 TODAY. STILL WAITING FOR ROSA MONTEZ OF [facility] TO CALL BACK FOR PATIENT TRANSPORT FOR DIALYSIS Addendum: 04/07/17 at 1403 by Shavonne Stearns CM CHARGE NURSE JOSSY SALAZAR
--- NOTE | 2017-04-07 12:20 | NUR ---
CM NOTE LEFT MESSAGES (X 3) FOR ORSA MONTEZ OF [facility]# [phone] TO INFORM HER THAT [facility] CANNOT TAKE THE PATIENT FOR DIALYSIS AND TO FOLLOW UP ON WHAT'S BEING DONE ABOUT THIS. LEFT HER MY CALL BACK NUMBER. NO CALL BACK
[2017-04-07] MEDS ORDERED: CLINDAMYCI900 MG/50 IV (14:48)
[2017-04-07] MEDS ORDERED: LEVOFLOXACIN IV (14:48)
--- NOTE | 2017-04-07 14:52 | NUR ---
[facility]A [facility]. LEFT MESSAGE FOR [facility] MANAGER [employer]ENTAL ROMELIA # [phone] RE: PATIENT TRANSPORT FOR DIALYSIS. ALSO LEFT HER THE NUMBER TO THE NURSING FLOOR CHARGE NURSE IN CASE SHE CALLS AT A LATER TIME TODAY.
--- NOTE | 2017-04-07 15:17 | NUR ---
1356 LEFT MESSAGE WITH MELIDA TRAN CM REQUESTING CALL BACK REGARDING NO RESPONSE TO REQUEST FOR DIALYSIS TRANSPORT COMPANY FROM NUMEROUS VMS LEFT. 1510 LEFT MESSAGE FOR ROMELIA TRAN ARCHITECTURAL DESIGNER REQUESTING RESPONSE TO [facility] LEFT.
[2017-04-07 16:00] VITALS: BP 142/64
[2017-04-07] MEDS: LEVOFLOXACIN 250 MG/D5 PREMIX 50 ML IV SCH (16:09)
[2017-04-07] MEDS: INSULIN LISPRO SLIDING SCALE 100 UNITS/ML VIAL SUBQ PRN ×2 (16:35→20:36)
--- NOTE | 2017-04-07 18:53 | NUR ---
SPOKE WITH DIALYSIS NURSE AND CONFIRMED THAT PATIENT IS NOT DISCHARGED AND OF NOW WILL BE NEEDING DIALYSIS TOMORROW. WILL RELAY TO RATE INSERTER NURSE.
--- NOTE | 2017-04-07 19:21 | NUR ---
PT AWAKE AND ALERT, NO SIGNS OF ACUTE DISTRESS. BED IN LOW POSITION WITH BILATERAL HALF SIDE RAILS UP, CALL LIGHT WITHIN REACH. GAVE REPORT TO TRANSIT MAN RN FOR CONTINUITY OF CARE.
--- NOTE | 2017-04-07 19:22 | NUR ---
RECEIVED REPORT, ASSUMED CARE. PT [id number]. FAMILY AT BEDSIDE. RESPIRATION EVEN AND UNLABORED. NO C/O PAIN AT THIS TIME. NO S/S OF RESPIRATORY DISTRESS AT THIS TIME. RIGHT LOWER LEG CELLULITIS NOTED +2PITTING EDEMA, ELEVATED WITH PILLOW. JACQUIE CATH RIGHT UPPER CHEST, DRESSING IN PLACE, CLEAN. AV SHUNT TO RT ARM, BRUIT AND THRILL PRESENT. IV ACCESS TO LT HAND #[id number], NO S/S OF INFILTRATION. CALL LIGHT WITHIN EASY REACH. WILL CONTINUE TO MONITOR.
[2017-04-07] MEDS: SIMVASTATIN 10 MG TAB PO SCH (20:27)
--- NOTE | 2017-04-07 23:30 | NUR ---
ROUNDS MADE, PT SOUND ASLEEP AT THIS TIME,EASIYL AROUSABLE. REGULAR BREATHING PATTERN,NO S/S OF RESP DISTRESS. ALL NEEDS ANTICIPATED. CALL LIGHT KEPT WITHIN EASY REACH. WILL CONTINUE TO MONITOR.
[2017-04-08] VITALS: BP 117/49
[2017-04-08] MEDS: HYDROcodone/APAP 10/325 MG 1 TAB TAB PO PRN ×3 (00:25→09:35)
--- NOTE | 2017-04-08 00:25 | NUR ---
PT AWAKE, C/O RT LEG PAIN 06/24. MEDICATED WITH NORCO 10/32MG ORDERED. WILL CONTINUE TO MONITOR AND REASSESS FOR EFFECTIVENESS.
--- NOTE | 2017-04-08 02:45 | NUR ---
ROUNDS MADE, PT SLEEPING AT THIS TIME WITH NO S/S OF RESP DISTRESS. NO FACIAL GRIMACING OR MOANING INDICATING PAIN. ALL NEEDS ANTICIPATED. CALL LIGHT KEPT WITHIN EASY REACH. WILL CONTINUE TO MONITOR.
[2017-04-08] MEDS: CLINDAMYCIN 900 MG in DEXTROSE 5% 100 ML IV SCH ×2 (04:53→12:24)
[2017-04-08] MEDS: CYCLOBENZAPRINE 10 MG TAB PO PRN ×2 (04:53→09:35)
--- NOTE | 2017-04-08 04:55 | NUR ---
PT AWAKE, C/O MUSCLE SPASM. FLEXERIL 10 MG ADMINISTERED PER PATIENT'S REQUEST. WILL CONTINUE TO MONITOR.
[2017-04-08] MEDS: BLOOD GLUCOSE MONITORING 1 DEV DEV FS SCH ×3 (06:15→16:30)
[2017-04-08] MEDS: INSULIN LISPRO SLIDING SCALE 100 UNITS/ML VIAL SUBQ PRN ×3 (06:16→17:15)
--- NOTE | 2017-04-08 06:52 | NUR ---
SPOKE WITH SAMINA MOLINA, DIALYSIS NURSE. CONFIRMED SCHEDULED DIALYSIS TODAY. SHE STATES SHE WILL BE HERE TODAY AT 0900.WILL ENDORSE TO THE NEXT SHIFT.
--- NOTE | 2017-04-08 07:20 | NUR ---
PT AWAKE, VERBALLY RESPONSIVE. NO C/O PAIN AT THIS TIME. ENDORSED TO NEXT SHIFT FOR CONTINUITY OF CARE. PT IN STABLE CONDITION.
--- NOTE | 2017-04-08 07:21 | NUR ---
RECEIVED CARE OF PT FROM ENTERPRISE RECORDS ANALYST NURSE AT BEDSIDE. UPDATED BOARD AND INTRODUCED OURSELVES. PT IS ALERT AWAKE AND ORIENTED. PT HAS AV SHUT ON R UPPER ARM AND ELLEN CATH ON R UPPER CHEST. PT HAS IV ON L HAND 20 G TKO. DIALYSIS NURSE AT BEDSIDE TO BEGIN DIALYSIS. PT HAS NO COMPLAINTS OF PAIN. PULLED UP PT IN BED, PT READY FOR BREAKFAST. CALL LIGHT WITHIN REACH. WILL CONTINUE TO MONITOR.
[2017-04-08 08:00] VITALS: BP 116/51
[2017-04-08] MEDS: METOPROLOL SUCCINATE 50 MG TABER PO SCH ×2 (09:00→09:37)
--- NOTE | 2017-04-08 09:35 | NUR ---
PT C/O PAIN. ADMINISTERED NORCO AND FLEXERIL. CALL LIGHT WITHIN REACH. HD NURSE AT BEDSIDE. WILL CONTINUE TO MONITOR.
[2017-04-08] MEDS: VIT-B COMP/VIT-C/FOLIC ACID 1 TAB PO SCH (09:36)
[2017-04-08] MEDS: TACROLIMUS 0.5 MG CAP PO SCH (09:36)
[2017-04-08] MEDS: BUMETANIDE 1 MG TAB PO SCH (09:36)
[2017-04-08] MEDS: CHOLECALCIFEROL 1,000 IU TAB PO SCH (09:36)
[2017-04-08] MEDS: predniSONE 5 MG TAB PO SCH (09:37)
[2017-04-08] MEDS: ALLOPURINOL 100 MG TAB PO SCH (09:37)
[2017-04-08] MEDS: LISINOPRIL 5 MG TAB PO SCH (09:38)
[2017-04-08] MEDS: DOCUSATE SODIUM 100 MG GELCAP PO SCH (09:38)
[2017-04-08] MEDS: ASPIRIN 81 MG TAB.CHEW PO SCH (09:38)
[2017-04-08] MEDS: MAGNESIUM OXIDE 400 MG TAB PO SCH (09:38)
[2017-04-08] MEDS: INSULIN DETEMIR 100 UNITS/ML 10 ML VIAL SUBQ SCH (09:39)
--- NOTE | 2017-04-08 09:51 | NUR ---
LEFT A MESSAGE FOR MELIDA EARLIER THIS MORNING ABOUT TRANSPORT FROM SNF TO HD. WAITING CALL BACK. LATER RECEIVED A CALL FROM PEGGY [facility] [place] , ASKING WHY THIS PATIENT STILL HERE. I TOLD HER THAT TRANSPORT FROM SNF TO HD HAS NOT BEEN ARRANGED. SHE SAID SHE WOULD CALL BACK. RECEIVED A CALL FROM MELIDA FROM [facility] [place] [facility] [place] AND SHE WAS TOLD THAT [facility] COULD TAKE THE PATIENT, AND SHE WOULD LOOK INTO THE MATTER AND CALL ME BACK. FAXED CONCURRENT REVIEW TO [facility] [phone] PHONE MELIDA [phone].
--- NOTE | 2017-04-08 11:30 | NUR ---
PT C/O PAIN, UNRESOLVED WITH NORCO. WOULD LIKE SOMETHING STRONGER. TOLD PT I WILL SEE WHAT HAS BEEN ORDERED FOR HIM AND WILL DISCUSS WITH MD. SPOKE TO DR NAVARRETE. DR NAVARRETE STATED THAT PT IS BEING TRANSFERRED TO A SNF TODAY. WILL NOT BE ORDERING IV PAIN MEDS. INSTEAD HE WILL PUT HIM ON PERCOCET 5/325 Q4H. EXPLAINED TO PT. PT VERBALIZED UNDERSTANDING. ONCE VERIFIED BY PHARMACY. WILL ADMINISTER.
[2017-04-08] MEDS ORDERED: oxyCODONE/APAP 5/325 MG 1 TAB TAB PO PRN (11:35)
--- NOTE | 2017-04-08 11:38 | NUR ---
RECEIVED A CALL FROM MELIDA FROM [facility] ASKING THE TIME OF HIS HD AND THE TIME OF THE RUN. THE PATIENT GOES TO [facility] AT 2:30P.M. AND [place], RUN TIME IS 3 HOURS. I INFORMED MELIDA. MELIDA FROM [facility] CALLED ME BACK. [facility] WILL TAKE THE PATIENT FROM [facility] TO [facility] . THE CHAIR TIME WAS CHANGED TO 10:30A.M. TO ACCOMMODATE THE TRANSPORT. I INFORMED DAMIÁN RN TO INFORM THE PATIENT OF THE CHANGE IN CHAIR TIME. MELIDA SAID TO USE THE AUTH NUMBERS GIVEN YESTERDAY.
--- NOTE | 2017-04-08 11:45 | NUR ---
P.T. NOTES ATTEMPTED TO SEE PT, BUT PT CURRENTLY HAVING HD. PER HD NURSE WILL END AT AROUND NOON, WILL ATTEMPT TO SEE PT AT A LATER TIME, DC PLANNING IS BEING ARRANGED. PVE
--- NOTE | 2017-04-08 11:48 | NUR ---
04/08/17 RD FOLLOW-UP ASSESSMENT COMPLETED PLEASE REFER TO NUTRITION ASSESSMENT UNDER CARE ACTIVITY FOR ESTIMATED NUTRITIONAL NEEDS. 1. CONTINUE RENAL DIET 2. CONTINUE RENAL MVI 3. ADD IRON SUPPLEMENTATION 1X/DAILY 4. RD TO FOLLOW-UP 3-5 DAYS; MODERATE RISK SURESH PANTOJA, CORY
[2017-04-08] MEDS ORDERED: FERROUS SULFATE 325 MG TABEC PO SCH (12:00)
--- NOTE | 2017-04-08 12:00 | NUR ---
HD FINISHED. HD NURSE STATED 3.2 L REMOVED. PT RESTS IN BED, NO DISTRESS NOTED. WILL CONTINUE TO MONITOR.
--- NOTE | 2017-04-08 12:10 | NUR ---
CALLED [facility] AND SPOKE WITH SALLY AND INFORMED HIM THAT WILL TAKE PATIENT TO DIALYSIS ON [place], BUT THE CHAIR TIME WAS CHANGED TO 10:30A.M. I TOLD HIM TRANSPORT WILL BE BY , AUTH [id number]. SALLY SAID THAT THE PATIENT WILL GO TO ROOM 111A. I CALLED [facility] AND INFORMED HER.
[2017-04-08] MEDS: EPOETIN ALFA 10,000 UNITS/ML VIAL IV SCH (12:23)
--- NOTE | 2017-04-08 12:46 | NUR ---
P.T. NOTES ATTEMPTED TO SEE PT BUT PT JUST FINISHED HD AND REQUESTING TO HAVE LUNCH FIRST. PVE
--- NOTE | 2017-04-08 13:41 | NUR ---
called [facility] [phone] and spoke with Roxanna. pt is scheduled to be picked up at 1730 hrs. Lacy-lawrence nurse assigned made aware.
--- NOTE | 2017-04-08 14:00 | NUR ---
PT IS RESTING IN BED WITH FAMILY AT BEDSIDE. PT HAS NO COMPLAINTS AT THIS TIME.
--- NOTE | 2017-04-08 15:06 | NUR ---
CALLED [facility] AND GAVE REPORT TO NINA SONG.
[2017-04-08 16:00] VITALS: BP 135/56
--- NOTE | 2017-04-08 17:10 | NUR ---
WENT OVER DISCHARGE PAPERWORK WITH PT. PT SIGNED ALL APPROPRIATE PAPERS AND RECEIVED PAIN MED PRESCRIPTION. PT VERBALIZED UNDERSTANDING OF PLAN. CALL LIGHT WITHIN REACH. WILL CONTINUE TO MONITOR.
--- NOTE | 2017-04-08 18:34 | NUR ---
PT LEFT WITH [facility]. ALL BANDS REMOVED. PT IN STABLE CONDITION.
[2017-04-09] MEDS ORDERED: FERROUS SULFATE 325 MG TABEC PO SCH (08:00)
== END 2017-04-08 18:34 | DRG 602 ==
LOC: MED 14:37 → MTU 17:10
PROVIDERS: ADMIT Family Medicine; ATTEND Family Medicine
PROC: 5A1D60Z (ICD-10-PCS; principal; 2017-04-03)
DX: L03.115 Cellulitis of right lower limb (principal); N17.0 Acute kidney failure with tubular necrosis; J96.90 Respiratory failure, unspecified, unspecified whether with hypoxia or hypercapnia; J69.0 Pneumonitis due to inhalation of food and vomit; N18.6 End stage renal disease; N39.0 Urinary tract infection, site not specified; Z94.0 Kidney transplant status; Z94.4 Liver transplant status; I13.11 Hypertensive heart and chronic kidney disease without heart failure, with stage 5 chronic kidney disease, or end stage renal disease; I42.0 Dilated cardiomyopathy; E87.1 Hypo-osmolality and hyponatremia; D64.9 Anemia, unspecified; E83.51 Hypocalcemia; M10.9 Gout, unspecified; E11.22 Type 2 diabetes mellitus with diabetic chronic kidney disease; E11.51 Type 2 diabetes mellitus with diabetic peripheral angiopathy without gangrene; I70.209 Unspecified atherosclerosis of native arteries of extremities, unspecified extremity; I89.0 Lymphedema, not elsewhere classified; E11.40 Type 2 diabetes mellitus with diabetic neuropathy, unspecified; I35.0 Nonrheumatic aortic (valve) stenosis; Z99.2 Dependence on renal dialysis; Z88.1 Allergy status to other antibiotic agents; Z88.2 Allergy status to sulfonamides; Z88.7 Allergy status to serum and vaccine; Z88.8 Allergy status to other drugs, medicaments and biological substances; Z79.52 Long term (current) use of systemic steroids; Z79.82 Long term (current) use of aspirin; Z79.899 Other long term (current) drug therapy; Z79.4 Long term (current) use of insulin